=== PATIENT | female | born 1940 | race Caucasian/White ===

== ENCOUNTER 2021-06-19 09:19 | Emergency (ER) | payer OTHER, MEDICAID ==
[~2021-06-19] VITALS: Ht 170.2 cm; Wt 79.4 kg
[2021-06-19 09:29] VITALS: BP_SYST 171
--- NOTE | 2021-06-19 09:32 | NUR ---
pt bib self c/o left arm pain and nose after glf last evenin. triage completed. dr lagos at bedside
--- NOTE | 2021-06-19 09:59 | NUR ---
labs drawn by lab
--- NOTE | 2021-06-19 10:07 | NUR ---
pt to x ray
[2021-06-19 10:13] LABS: BASOPHILS % (AUTO) 0.5 % (0.0-2.0); EOSINOPHILS # (AUTO) 0.1 K/uL (0.0-0.4); EOSINOPHILS % (AUTO) 0.7 % (0.0-4.0); HEMATOCRIT 37.3 % (36-48); HEMOGLOBIN 12.4 g/dL (12.0-16.0); LYMPHOCYTES # (AUTO) 1.7 K/uL (1.0-5.5); LYMPHOCYTES % (AUTO) 20.4 % (20.5-51.5); MEAN CORPUSCULAR HEMOGLOBIN 32 pg (27-31); MEAN CORPUSCULAR HGB CONC 33 % (32-36); MEAN CORPUSCULAR VOLUME 95 fL (79.0-98.0); MONOCYTES # (AUTO) 0.6 K/uL (0.0-1.0); MONOCYTES % (AUTO) 6.9 % (1.7-9.3); NEUTROPHILS # (AUTO) 5.9 K/uL (1.8-7.7); NEUTROPHILS % (AUTO) 71.5 % (40.0-70.0); PLATELET COUNT (AUTO) 220 K/uL (130-430); RED BLOOD CELL COUNT(AUTO) 3.91 MIL/uL (4.2-6.2); RED CELL DISTRIBUTION WIDTH 13.9 % (9.0-15.0); WHITE BLOOD COUNT (AUTO) 8.2 K/uL (4.8-10.8)
[2021-06-19 10:19] LABS: ANION GAP 9 (5-15); CALCIUM 9.4 mg/dL (8.4-11.0); CHLORIDE 104 mmol/L (98-107); CREATININE 0.81 mg/dL (0.55-1.30); GLUCOSE 103 mg/dL (70-99); SODIUM SERUM 141 mmol/L (136-145); UREA NITROGEN, BLOOD 18 mg/dL (8-21)
--- NOTE | 2021-06-19 10:29 | NUR ---
pt returned from x ray in [facility]
[2021-06-19 10:34] LABS: ALANINE AMINOTRANSFERASE 25 U/L (12-78); ALBUMIN 3.9 g/dL (3.4-4.8); ASPARTATE AMINOTRANSFERASE 18 U/L (10-37); TOTAL BILIRUBIN 0.4 mg/dL (0.0-1.0)
[2021-06-19] MEDS ORDERED: SOM350 PO (10:48)
[2021-06-19] MEDS ORDERED: IBUP-1969 PO (10:48)
[2021-06-19 11:08] VITALS: BP_SYST 166
--- NOTE | 2021-06-19 11:10 | NUR ---
pt placed left arm sling
--- NOTE | 2021-06-19 11:10 | NUR ---
Patient given written and verbal discharge instructions and verbalizes understanding. TALI lagos MD discussed with patient the results and treatment provided. Patient in stable condition. ID arm band removed. Rx of sandra cerna given. Patient educated on pain management and to follow up with PMD. Pain Scale 1. Opportunity for questions provided and answered. Medication side effect fact sheet provided.
== END 2021-06-19 11:08 | disposition home or self-care (01) ==
LOC: SED 09:19
DX: S40.022A Contusion of left upper arm, initial encounter (principal); S00.33XA Contusion of nose, initial encounter; M19.90 Unspecified osteoarthritis, unspecified site; E78.00 Pure hypercholesterolemia, unspecified; Z88.8 Allergy status to other drugs, medicaments and biological substances; W18.39XA Other fall on same level, initial encounter; Y93.89 Activity, other specified; Y92.89 Other specified places as the place of occurrence of the external cause; Y99.8 Other external cause status
CPT/HCPCS: 36415; 70160-TC; 73060-TC; 80053; 83605; 85025; 99284

== ENCOUNTER 2021-06-25 19:58 | Emergency (ER) | payer OTHER, MEDICAID ==
[~2021-06-25] VITALS: Ht 165.1 cm; Wt 72.6 kg
[~2021-06-25 19:58] MED LIST: IBUP-1969 PO; SOM350 PO
[2021-06-25 20:03] VITALS: BP_SYST 148
[2021-06-25 20:30] VITALS: BP_SYST 152
== END 2021-06-25 20:31 | disposition home or self-care (01) ==
LOC: SED 19:58
DX: F41.9 Anxiety disorder, unspecified (principal); I10 Essential (primary) hypertension; Z88.1 Allergy status to other antibiotic agents; Z79.899 Other long term (current) drug therapy
CPT/HCPCS: 93005; 99283

== ENCOUNTER 2021-10-27 17:25 | Emergency (ER) | payer OTHER, MEDICAID ==
[~2021-10-27] VITALS: Ht 167.6 cm; Wt 77.1 kg
--- NOTE | 2021-10-27 18:00 | NUR ---
Patient to ER bed 5 to gown for evaluation. Side rails up. Report given to KG CUNHA.
[2021-10-27 18:22] VITALS: BP_SYST 152
--- NOTE | 2021-10-27 18:30 | NUR ---
ER at bedside examining patient.
--- NOTE | 2021-10-27 18:41 | NUR ---
RECEIVED PT FROM JOSE CUNHA. ASSUMED CARE. PT AAO4. NO R/A. HERE FOR REPORT OF URINARY PROBLEM. DENIES PAIN. SIDE RAILS UP X2. BED IN LOWEST POSITION.
[2021-10-27] MEDS ORDERED: IBUPROFEN 800 MG TABLET PO ONE (18:45)
[2021-10-27 19:14] LABS: BILIRUBIN,URINE NEGATIVE (NEGATIVE); BLOOD, URINE 2+ (NEGATIVE); CLARITY/URINE CLEAR (CLEAR); COLOR,URINE YELLOW (YELLOW); GLUCOSE,URINE NEGATIVE (NEGATIVE); KETONES,URINE NEGATIVE (NEGATIVE); LEUKOCYTE ESTERASE ,URINE NEGATIVE (NEGATIVE); NITRITE, URINE NEGATIVE (NEGATIVE); PH,URINE 5.5 (5.0-8.0); PROTEIN URINE NEGATIVE (NEGATIVE); UROBILINOGEN,URINE 0.2 (0.2-1.0)
--- NOTE | 2021-10-27 19:14 | NUR ---
IV ACCESS OBTAINED, U/A AND MIKE SAMPLES TAKEN TO LAB. COOLING MEASURES IN PLACE.
[2021-10-27 19:23] LABS: BACTERIA,URINE None Seen /HPF (None Seen); RBC,URINE 0-3 /HPF (0-3); WBC,URINE 0-3 /HPF (0-3)
[2021-10-27 19:24] LABS: MUCUS,URINE None Seen /LPF (None Seen)
--- NOTE | 2021-10-27 19:25 | NUR ---
PT ENDORSED TO ALPHONSE SAHU. ALL QUESTIONS AND CONCERNS ADDRESSED.
[2021-10-27] MEDS ORDERED: NACL 0.9% 1,000 ML IV ONE (19:30)
--- NOTE | 2021-10-27 19:30 | NUR ---
ALPHONSE DRAKE REPORT FROM ALPHONSE ODEN
[2021-10-27 20:01] LABS: BASOPHILS # (AUTO) 0.1 K/uL (0.0-0.2); BASOPHILS % (AUTO) 0.5 % (0.0-2.0); HEMATOCRIT 36.7 % (36-48); HEMOGLOBIN 12.3 g/dL (12.0-16.0); LYMPHOCYTES # (AUTO) 0.6 K/uL (1.0-5.5); LYMPHOCYTES % (AUTO) 5.9 % (20.5-51.5); MEAN CORPUSCULAR HEMOGLOBIN 32 pg (27-31); MEAN CORPUSCULAR HGB CONC 34 % (32-36); MEAN CORPUSCULAR VOLUME 95 fL (79.0-98.0); MONOCYTES # (AUTO) 0.4 K/uL (0.0-1.0); MONOCYTES % (AUTO) 3.8 % (1.7-9.3); NEUTROPHILS # (AUTO) 9.7 K/uL (1.8-7.7); NEUTROPHILS % (AUTO) 89.8 % (40.0-70.0); PLATELET COUNT (AUTO) 197 K/uL (130-430); RED BLOOD CELL COUNT(AUTO) 3.87 MIL/uL (4.2-6.2); RED CELL DISTRIBUTION WIDTH 13.8 % (9.0-15.0); WHITE BLOOD COUNT (AUTO) 10.8 K/uL (4.8-10.8)
[2021-10-27 20:02] LABS: ANION GAP 8 (5-15); CALCIUM 8.9 mg/dL (8.4-11.0); CHLORIDE 99 mmol/L (98-107); CREATININE 0.86 mg/dL (0.55-1.30); GLUCOSE 135 mg/dL (70-99); POTASSIUM 3.5 mmol/L (3.5-5.1); SODIUM SERUM 134 mmol/L (136-145); UREA NITROGEN, BLOOD 14 mg/dL (8-21)
[2021-10-27 20:09] LABS: ALANINE AMINOTRANSFERASE 19 U/L (12-78); ALBUMIN 3.6 g/dL (3.4-4.8); ASPARTATE AMINOTRANSFERASE 18 U/L (10-37); TOTAL BILIRUBIN 0.5 mg/dL (0.0-1.0)
[2021-10-27 20:18] LABS: PROTHROMBIN TIME 9.9 SECS (9.5-12.5)
--- NOTE | 2021-10-27 20:32 | NUR ---
PT UP AMB TO BR WITH EVEN AND STEADY GAIT. C/O WALLS, FEVER X 2-3 DAYS. 102.1 TEMPORAL. 10/10 PAIN SCALE. PT MEDICATED PER ER MD ORDERS. PO WATER GIVEN FOR HYDRATION AND COOLING MEASURE. CONTINUED MONITORING
--- NOTE | 2021-10-27 20:38 | NUR ---
NASAL FLU A/B SWAB COLLECTED AND SENT TO LAB
[2021-10-27] MEDS ORDERED: ACET-2634 PO (20:49)
[2021-10-27] MEDS ORDERED: ACETAMINOPHEN 500 MG TABLET ONE (21:06)
--- NOTE | 2021-10-27 22:20 | NUR ---
PT FEELING BETTER WALLS IS LESS, PAIN LEVAL 2/10. IV NS 1 LITER BOLUS INFUSED CONTINUED MONITORING
[2021-10-27 22:47] VITALS: BP_SYST 134
--- NOTE | 2021-10-27 22:49 | NUR ---
PT STABLE FOR D/C TO HOME. IV REMOVED TO LEFT HAND WITH CATH INTACT AND PRESSURE DRESSING APPLIED. PT VERBALIZES UNDERSTANDING OF AFTERCARE PAPERWORK. TO LOBBY AMB WITH STEADY AND ALEX GAIT WITH ALL PAPERWORK IN HAND "FEELS BETTER"
== END 2021-10-27 22:47 | disposition home or self-care (01) ==
LOC: SED 17:25
DX: B34.9 Viral infection, unspecified (principal); R50.9 Fever, unspecified; R51.9 Headache, unspecified; I10 Essential (primary) hypertension; Z88.1 Allergy status to other antibiotic agents; Z20.822 Contact with and (suspected) exposure to COVID-19
CPT/HCPCS: 99285; 96360; 71045; 87426; 80053; 81000; 85025; 85610; 85730; 87040; 87086; 36415; 83605; 87804 ×2; J7030

== ENCOUNTER 2022-08-31 12:21 | Emergency (ER) | payer OTHER, MEDICAID ==
[~2022-08-31] VITALS: Ht 170.2 cm; Wt 77.1 kg
[~2022-08-31 12:21] MED LIST changes: +ACET-2634 PO; +AMOX-423 PO; +BENA10TA73 PO; +CLON1TAB12 PO; +DICY10CA13 PO; +FEM2.5; +HYDR-3917 PO; +ONDA-8 PO; +PANT40TA45 PO; +SIMV10TA97 PO; +SUMA100T16 PO
[2022-08-31 12:40] VITALS: BP_SYST 136
[2022-08-31 14:41] LABS: BILIRUBIN,URINE NEGATIVE (NEGATIVE); CLARITY/URINE CLEAR (CLEAR); COLOR,URINE YELLOW (YELLOW); GLUCOSE,URINE NEGATIVE (NEGATIVE); KETONES,URINE NEGATIVE (NEGATIVE); LEUKOCYTE ESTERASE ,URINE NEGATIVE (NEGATIVE); NITRITE, URINE NEGATIVE (NEGATIVE); PH,URINE 6.5 (5.0-8.0); PROTEIN URINE NEGATIVE (NEGATIVE); UROBILINOGEN,URINE 0.2 (0.2-1.0)
[2022-08-31 14:49] LABS: BLOOD, URINE TRACE (NEGATIVE)
[2022-08-31 14:50] LABS: BACTERIA,URINE None Seen /HPF (None Seen); MUCUS,URINE None Seen /LPF (None Seen); RBC,URINE NONE SEEN /HPF (0-3); WBC,URINE NONE SEEN /HPF (0-3)
[2022-08-31 14:55] LABS: BASOPHILS # (AUTO) 0.1 K/uL (0.0-0.2); BASOPHILS % (AUTO) 1.1 % (0.0-2.0); EOSINOPHILS # (AUTO) 0.2 K/uL (0.0-0.4); EOSINOPHILS % (AUTO) 2.3 % (0.0-4.0); HEMATOCRIT 35.4 % (36-48); HEMOGLOBIN 11.6 g/dL (12.0-16.0); LYMPHOCYTES # (AUTO) 1.9 K/uL (1.0-5.5); LYMPHOCYTES % (AUTO) 24.9 % (20.5-51.5); MEAN CORPUSCULAR HEMOGLOBIN 32 pg (27-31); MEAN CORPUSCULAR HGB CONC 33 % (32-36); MEAN CORPUSCULAR VOLUME 96 fL (79.0-98.0); MONOCYTES # (AUTO) 0.4 K/uL (0.0-1.0); MONOCYTES % (AUTO) 5.5 % (1.7-9.3); NEUTROPHILS # (AUTO) 5.1 K/uL (1.8-7.7); NEUTROPHILS % (AUTO) 66.2 % (40.0-70.0); PLATELET COUNT (AUTO) 273 K/uL (130-430); RED BLOOD CELL COUNT(AUTO) 3.67 MIL/uL (4.2-6.2); RED CELL DISTRIBUTION WIDTH 14.1 % (9.0-15.0); WHITE BLOOD COUNT (AUTO) 7.8 K/uL (4.8-10.8)
[2022-08-31 15:01] LABS: ANION GAP 6 (5-15); CALCIUM 8.5 mg/dL (8.4-11.0); CHLORIDE 107 mmol/L (98-107); CREATININE 0.74 mg/dL (0.55-1.30); GLUCOSE 116 mg/dL (70-99); UREA NITROGEN, BLOOD 11 mg/dL (8-21)
[2022-08-31 15:06] LABS: ALANINE AMINOTRANSFERASE 40 U/L (12-78); ALBUMIN 3.3 g/dL (3.4-4.8); AMYLASE 68 U/L (0-100); ASPARTATE AMINOTRANSFERASE 38 U/L (10-37); C-REACTIVE PROTEIN QUANT 1.7 mg/dL (0-0.5); LIPASE 162 U/L (73-393); TOTAL BILIRUBIN 0.3 mg/dL (0.0-1.0)
[2022-08-31 15:31] VITALS: BP_SYST 143
== END 2022-08-31 15:45 | disposition home or self-care (01) ==
LOC: SED 12:21
DX: T85.598A Other mechanical complication of other gastrointestinal prosthetic devices, implants and grafts, initial encounter (principal); I10 Essential (primary) hypertension; E78.00 Pure hypercholesterolemia, unspecified; Z88.1 Allergy status to other antibiotic agents; Z79.899 Other long term (current) drug therapy
CPT/HCPCS: 36415; 76376; 80053; 81000; 82150; 83605; 83690; 85025; 86140; 99284